=== PATIENT | female | born 1995 | race Caucasian/White ===

== ENCOUNTER 2019-12-28 10:46 | Observation (INO) | payer OTHER ==
--- NOTE | 2019-12-28 12:05 | XRAY ---
Indication: Evaluate ERICA. Limited OB ultrasound performed to evaluate ERICA. There is a single viable intrauterine with heart rate 123 BPM. Four-quadrant ERICA is 14.5 cm, previously 12.2 cm October 18, 2019.
[2019-12-28 13:10] VITALS: BP 131/79; PULSE 88; O2SAT 98
== END 2019-12-28 12:40 | disposition home or self-care (01) ==
LOC: OB 10:46
PROVIDERS: ADMIT Family Medicine; ATTEND Family Medicine
DX: Z34.83 Encounter for supervision of other normal pregnancy, third trimester (principal)
CPT/HCPCS: 59025; 76815; G0378

== ENCOUNTER 2020-01-01 12:23 | Observation (INO) | payer OTHER ==
[2020-01-01 12:51] VITALS: BP 115/80; PULSE 90
== END 2020-01-01 13:27 | disposition home or self-care (01) ==
LOC: OB 12:23
PROVIDERS: ADMIT Family Medicine; ATTEND Family Medicine
DX: O24.415 Gestational diabetes mellitus in pregnancy, controlled by oral hypoglycemic drugs (principal); Z3A.35 35 weeks gestation of pregnancy
CPT/HCPCS: 59025; G0378

== ENCOUNTER 2020-01-04 08:27 | Observation (INO) | payer OTHER ==
[2020-01-04 12:57] VITALS: BP 144/89; PULSE 75
--- NOTE | 2020-01-04 13:28 | XRAY ---
Indication: Evaluate ERICA. Limited OB ultrasound performed to evaluate ERICA. There is a single viable intrauterine with heart rate 125 BPM. Four-quadrant ERICA is 11.1 cm, previously 14.5 cm on December 28, 2019.
== END 2020-01-04 13:30 | disposition home or self-care (01) ==
LOC: EDSTATUS 08:27 → OB 12:29
PROVIDERS: ADMIT Family Medicine; ATTEND Family Medicine
DX: O24.415 Gestational diabetes mellitus in pregnancy, controlled by oral hypoglycemic drugs (principal); Z3A.35 35 weeks gestation of pregnancy
CPT/HCPCS: 59025; 76815; G0378

== ENCOUNTER 2020-01-08 13:36 | Observation (INO) | payer OTHER ==
[2020-01-08 14:00] VITALS: BP 121/78; PULSE 81
== END 2020-01-08 14:20 | disposition home or self-care (01) ==
LOC: OB 13:36
PROVIDERS: ADMIT Family Medicine; ATTEND Family Medicine
DX: O24.415 Gestational diabetes mellitus in pregnancy, controlled by oral hypoglycemic drugs (principal); Z3A.36 36 weeks gestation of pregnancy
CPT/HCPCS: 59025; G0378

== ENCOUNTER 2020-01-11 08:07 | Observation (INO) | payer OTHER ==
[2020-01-11 14:32] VITALS: PULSE 86
[2020-01-11 14:53] VITALS: BP 122/75
--- NOTE | 2020-01-11 15:14 | XRAY ---
Indication: Evaluate ERICA. Gestational diabetes. Limited OB ultrasound performed to evaluate ERICA. Four-quadrant ERICA is 12.3 cm, previously 11.1 cm on January 04, 2020.
== END 2020-01-11 14:48 | disposition home or self-care (01) ==
LOC: OB 13:52 → UNDOADMOB 13:52 → MED SURG 13:52
PROVIDERS: ADMIT Family Medicine; ATTEND Family Medicine
DX: O09.93 Supervision of high risk pregnancy, unspecified, third trimester (principal); Z3A.36 36 weeks gestation of pregnancy
CPT/HCPCS: 59025; 76815; G0378

== ENCOUNTER 2020-01-15 11:14 | Observation (INO) | payer OTHER ==
[2020-01-15 11:40] VITALS: BP 141/91; PULSE 86
== END 2020-01-15 11:55 | disposition home or self-care (01) ==
LOC: OB 11:14
PROVIDERS: ADMIT Family Medicine; ATTEND Family Medicine
DX: Z34.83 Encounter for supervision of other normal pregnancy, third trimester (principal)
CPT/HCPCS: 59025; G0378

== ENCOUNTER 2020-01-18 06:30 | Observation (INO) | payer OTHER ==
[2020-01-18 12:12] VITALS: PULSE 63; O2SAT 98
--- NOTE | 2020-01-18 12:40 | XRAY ---
Indication: Evaluate ERICA. Limited OB ultrasound demonstrates a single viable intrauterine with heart rate 123 BPM. Four-quadrant ERICA is 7.9 cm.
[2020-01-18 12:44] VITALS: BP 128/84
== END 2020-01-18 12:40 | disposition home or self-care (01) ==
LOC: EDSTATUS 11:09 → OB 11:10
PROVIDERS: ADMIT Family Medicine; ATTEND Family Medicine
DX: O09.93 Supervision of high risk pregnancy, unspecified, third trimester (principal); Z3A.37 37 weeks gestation of pregnancy
CPT/HCPCS: 59025; 76805; 81003; G0378

== ENCOUNTER 2020-01-22 07:01 | Inpatient (IN) | payer OTHER ==
--- NOTE | 2020-01-22 16:01 | XRAY ---
Indication: Evaluate ERICA. well-being. Limited OB ultrasound performed to evaluate ERICA. There is a single viable intrauterine with heart rate 141 BPM. Four-quadrant ERICA is 1.9 cm favoring oligohydramnios. This was previously 7.9 cm on January 18, 2020. Comment: Preliminary report was given.
[2020-01-22] MEDS ORDERED: Lactated Ringers 1,000 ML IV ONE ×2 (16:30→17:02)
[2020-01-22] MEDS ORDERED: XYLOCAINE 1% HCL 20 ML MDV IJ PRN (16:54)
[2020-01-22] MEDS ORDERED: PITOCIN 30 UNITS/ LR 500 ML 500 ML IV SCH (17:00)
[2020-01-22] MEDS ORDERED: Lactated Ringers 1,000 ML IV SCH (17:00)
[2020-01-22] MEDS ORDERED: Ephedrine Sulfate 50 MG/ML IV PRN (17:02)
[2020-01-22] MEDS ORDERED: OB EPIDURAL NAROPIN/SUFENTANIL IN NACL EPIDURAL PRN (17:02)
[2020-01-22 17:14] LABS: Absolute Neutrophil Ct (ANC) 8.84 (1.4-6.9); BASOPHIL % 0.3 % (0.0-0.4); Basophil (Absolute #) 0.03 (0-0.4); Eosinophil % 0.3 % (0.00-5.0); Eosinophil (Absolute #) 0.04 (0-0.5); Hematocrit 38.6 % (35-47); Hemoglobin 13.1 gm/dl (12.0-16.0); Lymphocyte (Absolute #) 2.28 (1.0-4.6); Lymphocytes % 19.1 % (24.0-44.0); Mean Cell Volume 89.4 fl (78-100); Mean Corpuscular Hemoglobin 30.3 pg (26-32); Mean Corpuscular Hgb Concent. 33.9 g/dl (32-36); Mean Platelet Volume 11.8 fl (7.5-11.0); Monocyte (Absolute #) 0.74 (0.0-1.3); Monocytes % 6.2 % (0.0-12.0); Neutrophil % 74.1 % (36.0-66.0); Platelet Count 132 K/mm3 (150-450); Red Blood Count 4.32 M/mm3 (4.1-5.4); Red Cell Distribution Width 13.2 % (11.5-14.0); White Blood Count 11.9 K/mm3 (4.0-10.5)
[2020-01-22] MEDS ORDERED: MOTRIN 400 MG PO PRN (20:27)
[2020-01-22] MEDS ORDERED: Mylicon 80MG PO PRN (20:27)
[2020-01-22] MEDS ORDERED: Dermoplast Spray TP PRN ×2 (20:27)
[2020-01-22] MEDS ORDERED: Ambien 10 MG PO PRN (20:27)
[2020-01-22] MEDS ORDERED: CORTISONE 1% CREAM TP PRN (20:27)
[2020-01-22] MEDS: FERREX 150 PO SCH (20:27)
[2020-01-22] MEDS ORDERED: TYLENOL EXTRA STRENGTH 500 MG PO PRN ×2 (20:27)
[2020-01-22] MEDS ORDERED: Dulcolax 10 MG SUPP PR PRN (20:27)
[2020-01-22] MEDS ORDERED: Restoril 15 MG PO PRN (20:27)
[2020-01-22] MEDS ORDERED: LANSINOH 40 GM TOP PRN ×2 (20:27)
[2020-01-22] MEDS ORDERED: TUCKS TP PRN ×2 (20:27)
[2020-01-22] MEDS: NORCO 5/325 MG PO PRN (20:42)
[2020-01-22] MEDS: MOTRIN 400 MG PO PRN (22:58)
[2020-01-23] MEDS: Colace 100 MG PO SCH ×6 (00:38→21:20)
[2020-01-23] MEDS: NORCO 5/325 MG PO PRN ×3 (00:43→19:35)
[2020-01-23 01:47] LABS: Barbiturate,Urine NEGATIVE (NEGATIVE); Benzodiazepine,Urine POSITIVE (NEGATIVE); Cocaine,Urine NEGATIVE (NEGATIVE); Methadone,Urine NEGATIVE (NEGATIVE); Opiate,Urine POSITIVE (NEGATIVE); PCP,Urine NEGATIVE (NEGATIVE); THC,Urine NEGATIVE (NEGATIVE)
[2020-01-23 04:35] LABS: Amphetamine,Urine NEGATIVE (NEGATIVE)
[2020-01-23 05:05] LABS: Absolute Neutrophil Ct (ANC) 9.11 (1.4-6.9); BASOPHIL % 0.2 % (0.0-0.4); Basophil (Absolute #) 0.03 (0-0.4); Eosinophil % 0.5 % (0.00-5.0); Eosinophil (Absolute #) 0.07 (0-0.5); Hematocrit 34.7 % (35-47); Hemoglobin 11.8 gm/dl (12.0-16.0); Lymphocyte (Absolute #) 2.75 (1.0-4.6); Mean Cell Volume 89.7 fl (78-100); Mean Corpuscular Hemoglobin 30.5 pg (26-32); Monocyte (Absolute #) 1.13 (0.0-1.3); Monocytes % 8.6 % (0.0-12.0); Neutrophil % 69.7 % (36.0-66.0); Platelet Count 129 K/mm3 (150-450); Red Blood Count 3.87 M/mm3 (4.1-5.4); White Blood Count 13.1 K/mm3 (4.0-10.5)
[2020-01-23] MEDS ORDERED: Adacel Vial IM ONE (08:00)
[2020-01-23] MEDS ORDERED: FERREX 150 PO SCH (10:00)
[2020-01-23] MEDS: FERREX 150 PO SCH (10:00)
[2020-01-23] MEDS: MOTRIN 400 MG PO PRN ×2 (10:32→18:24)
[2020-01-24] MEDS: Colace 100 MG PO SCH ×2 (01:05→11:10)
[2020-01-24] MEDS ORDERED: MOTRIN 400 MG ONE (01:18)
[2020-01-24 04:15] VITALS: O2SAT 98
[2020-01-24] MEDS ORDERED: NORCO 5/325 MG ONE (06:15)
[2020-01-24] MEDS: NORCO 5/325 MG PO PRN ×2 (06:19→11:10)
[2020-01-24] MEDS: FERREX 150 PO SCH (11:10)
[2020-01-24 16:42] VITALS: BP 121/67; PULSE 65
== END 2020-01-24 16:20 | disposition home or self-care (01) | DRG 807 ==
LOC: OBSVTOIN 15:02 → MED SURG 15:02 → OB 15:03
PROVIDERS: ADMIT Family Medicine; ATTEND Family Medicine
PROC: 10E0XZZ Delivery of Products of Conception, External Approach (ICD-10-PCS; principal; 2020-01-22)
DX: O24.425 Gestational diabetes mellitus in childbirth, controlled by oral hypoglycemic drugs (principal); Z37.0 Single live birth; Z3A.38 38 weeks gestation of pregnancy; F17.200 Nicotine dependence, unspecified, uncomplicated; D50.9 Iron deficiency anemia, unspecified
CPT/HCPCS: 36415; 76815; 80307; 82962; 84112; 85025; 90471; 90715; 94799; G0378; J2590; J2795; A9270-GY

== ENCOUNTER 2020-04-02 06:56 | Day surgery (SDC) | payer OTHER ==
[2020-04-02] MEDS ORDERED: Lactated Ringers 1,000 ML IV SCH (07:30)
[2020-04-02] MEDS ORDERED: KEFZOL 1 GM/50 ML PREMIX** 1 GM/50 ML IVPB IV ONE (08:33)
[2020-04-02] MEDS ORDERED: DIPRIVAN 200 MG/20 ML IV ONE (08:37)
[2020-04-02] MEDS ORDERED: Zemuron 100 MG/10 ML ONE (08:37)
[2020-04-02] MEDS ORDERED: Xylocaine-Mpf 2% 5 Ml Vial ONE (08:37)
[2020-04-02] MEDS ORDERED: TORAdol 30 mg Injection ONE (08:37)
[2020-04-02] MEDS ORDERED: Zofran 4 MG/2 ML VIAL ONE ×2 (08:37→09:43)
[2020-04-02] MEDS ORDERED: SUBLIMAZE 100 MCG/2 ML ONE ×2 (08:37→09:34)
[2020-04-02] MEDS ORDERED: Decadron 4 MG INJ ONE (08:37)
[2020-04-02] MEDS ORDERED: BRIDION 200MG/2ML IV ONE (08:37)
[2020-04-02] MEDS ORDERED: Ketamine HCl 50 MG/ML ONE (08:39)
[2020-04-02] MEDS ORDERED: Lactated Ringers 1,000 ML IV ONE (08:42)
[2020-04-02] MEDS ORDERED: Sensorcaine 0.25% 10 ML ONE (08:42)
[2020-04-02] MEDS ORDERED: KEFZOL 1 GM/50 ML PREMIX** 1 GM/50 ML IVPB IV SCH (08:45)
[2020-04-02] MEDS ORDERED: DILAUDID 2 MG INJECTION ONE (09:44)
[2020-04-02 11:33] VITALS: BP 118/66; PULSE 69; O2SAT 93
[2020-04-02 14:25] LABS: Appearance CLEAR (CLEAR); Bilirubin NEGATIVE (NEGATIVE); Blood NEGATIVE Ery/ul (0-5); Glucose NEGATIVE (NEGATIVE); Ketones NEGATIVE (NEGATIVE); Leukocyte Esterase TRACE (NEGATIVE); Nitrite NEGATIVE (NEGATIVE); Protein,Urine Dip NEGATIVE (Negative); Specific Gravity 1.013 (1.005-1.025); Urobilinogen NEGATIVE mg/dL (0-1)
--- NOTE | 2020-04-03 09:25 | OP ---
SURGERY DATE/TIME: 04/02/2020 0839 PREOPERATIVE DIAGNOSIS: Multiparity desiring tubal sterilization. POSTOPERATIVE DIAGNOSIS: Multiparity desiring tubal sterilization. PROCEDURE: Laparoscopic tubal sterilization via Falope ring application. SURGEON: Albert Painter D.O. SECURITIES COUNSELOR: Andi Castillo technology support analyst. ANESTHESIA: General. ESTIMATED BLOOD LOSS: Minimal. COMPLICATIONS: None. INDICATIONS: The risks, benefits, indications and alternatives of the procedure were reviewed with the patient prior to the procedure. The patient understood the risk of infection, bleeding, bowel injury, bladder injury, ureteral injury, uterine perforation, possible and ectopic that may be associated with this procedure and desires to have this procedure as a possible means to alleviate her current medical condition. DESCRIPTION OF PROCEDURE AND FINDINGS: At this point the patient is taken to the operating room, given general sedation, placed in a dorsal lithotomy position. She was prepped and draped in the usual sterile fashion. A 5 mm skin incision is made approximately 1 cm above the umbilicus where a 5 mm trocar and sleeve were advanced under direct visualization where pneumoperitoneum was obtained with 4 liters of CO2 gas. From this point an additional incision was made approximately 2 cm above the symphysis pubis where an 8 mm incision was made and 8 mm trocar and sleeve were advanced under direct visualization as well. From this point after pneumoperitoneum visualization in the pelvic region appeared to be within normal limits with no gross abnormalities. From this point the Falope ring applicator was then placed into the suprapubic site and the right fallopian tube was then grasped at the isthmic region approximately 2 to 3 cm from the cornual region where it was grasped and taken up through the Falope ring applicator where the Falope ring was applied without complication and had an excellent loop of tube was in the Falope ring. The same procedure was performed on the left side where the Falope ring applicator was reloaded and the Falope ring was taken approximately 2 to 3 cm from the left cornual region where it was applied on the isthmic region and approximately 3 cm of tube was then looped around the Falope ring which showed excellent placement. From this point there was no bleeding noted from the tube. There were no complications that were noted. No other abnormality was noted within the pelvic region. From this point all instruments were then removed from the patient's abdominal region and the incisions were closed with 4-0 Monocryl suture with subsequent Dermabond. The patient was then taken out of anesthesia and was then taken to the recovery room in stable condition. All instruments and laps were accounted for x2.
== END 2020-04-02 12:40 | disposition home or self-care (01) ==
LOC: SDC 06:56
PROVIDERS: ATTEND Obstetrics & Gynecology
DX: Z30.2 Encounter for sterilization (principal)
CPT/HCPCS: 81001; 84703; 87086; J0690; J1100; J1170; J1885; J2405; J2704; J3010

== ENCOUNTER 2020-08-08 11:01 | Observation (INO) | payer BC, OTHER ==
[2020-08-08 13:17] LABS: Hematocrit 45.9 % (35-47); Hemoglobin 15.6 gm/dl (12.0-16.0); Mean Cell Volume 90.4 fl (78-100); Mean Corpuscular Hemoglobin 30.7 pg (26-32); Mean Platelet Volume 11.5 fl (7.5-11.0); Platelet Count 241 K/mm3 (150-450); Red Blood Count 5.08 M/mm3 (4.1-5.4); Red Cell Distribution Width 12.6 % (11.5-14.0); White Blood Count 7.9 K/mm3 (4.0-10.5)
[2020-08-08] MEDS: Zofran 4 MG/2 ML VIAL IV PRN (13:25)
[2020-08-08] MEDS: MORPHINE SULFATE 2 MG INJ IV PRN ×2 (13:25→23:31)
[2020-08-08 13:40] LABS: ALKALINE PHOSPHATASE 84 U/L (38-126); ANION GAP 13.3 MEQ/L (5-15); BLOOD UREA NITROGEN 8 mg/dL (7-17); CHLORIDE 107 mmol/L (98-107); Calcium 9.7 mg/dL (8.4-10.2); Carbon Dioxide 23 mmol/L (22-30); Creatinine 1 0.59 mg/dL (0.52-1.04); EST GLOMERULAR FILTRATION RATE > 60.0 ML/MIN; Glucose 98 mg/dL (74-106); Potassium 3.8 mmol/L (3.5-5.1); SGOT/AST 24 U/L (14-36); SGPT/ALT 9 U/L (0-35); SODIUM 139 mmol/L (137-145); Total Protein 8.2 g/dL (6.3-8.2)
[2020-08-08 13:44] LABS: Appearance SLIGHTLY CLOUDY (CLEAR); Bilirubin NEGATIVE (NEGATIVE); Blood NEGATIVE Ery/ul (0-5); Epithelial Cells RARE /HPF (FEW); Glucose NEGATIVE (NEGATIVE); Ketones TRACE (NEGATIVE); Leukocyte Esterase MODERATE (NEGATIVE); Mucus MANY /HPF (NEGATIVE); Nitrite NEGATIVE (NEGATIVE); Protein,Urine Dip 30 (Negative); Specific Gravity 1.026 (1.005-1.025); Urobilinogen 2 mg/dL (0-1)
[2020-08-08 13:50] LABS: Risk Ratio 3.9
[2020-08-08 13:56] LABS: Direct Bilirubin 0 mg/dL (0.0-0.4)
[2020-08-08 14:01] LABS: Amphetamine,Urine NEGATIVE (NEGATIVE); Barbiturate,Urine NEGATIVE (NEGATIVE); Benzodiazepine,Urine NEGATIVE (NEGATIVE); Cocaine,Urine NEGATIVE (NEGATIVE); Methadone,Urine NEGATIVE (NEGATIVE); Opiate,Urine NEGATIVE (NEGATIVE); PCP,Urine NEGATIVE (NEGATIVE); THC,Urine NEGATIVE (NEGATIVE)
--- NOTE | 2020-08-08 14:57 | XRAY ---
Indication: Bilateral flank pain and hematuria. Nausea and vomiting for weeks. Multiple contiguous images obtained through the abdomen and pelvis prior to and following 80 cc Isovue 370 contrast as ordered. Comparison: None Lung bases are clear. Heart is not enlarged. Noncontrasted images are negative for pathologic visceral calcifications or calculi. Noncontrasted stomach and bowel loops appear nonobstructed. Normal appendix. No free fluid/air. Postcontrast images demonstrates normal visceral enhancement and renal excretion. 1.1 cm left mid renal and 6 mm right mid renal cortical cyst. Uterus is retroverted. Remaining liver, gallbladder, pancreas, spleen, adrenal glands, kidneys, ureters, bladder, uterus, and aorta appear unremarkable. No pathologic retroperitoneal lymphadenopathy. Osseous structures intact. No ventral or inguinal hernias. Impression: 1. Negative for pathologic visceral calcifications/calculi. 2. Bilateral renal cysts. 3. Remaining CT abdomen/pelvis with and without contrast exam is negative.
[2020-08-08] MEDS ORDERED: MORPHINE SULFATE 2 MG INJ IV ONE (15:00)
[2020-08-08] MEDS: Sodium Chloride 0.9% 1000 ML 1,000 ML IV SCH (15:11)
[2020-08-08] MEDS: ROCEPHIN 1 Gm-D5w 50 ml Bag** 1 G/50 ML IVPB IV SCH (15:13)
[2020-08-08] MEDS ORDERED: CLONAZEPAM 1 MG PO PRN (17:23)
[2020-08-08] MEDS ORDERED: Flovent 110 Mcg MDI IH PRN (17:23)
[2020-08-08] MEDS ORDERED: Klonopin 0.5 MG PO PRN (17:27)
[2020-08-08] MEDS ORDERED: MEDICATION INTERVENTION MC PRN (17:29)
[2020-08-08] MEDS ORDERED: MEDICATION INTERVENTION MC SCH ×2 (17:45)
[2020-08-08] MEDS ORDERED: LURASIDONE HCL 20 MG PO SCH (22:00)
[2020-08-08] MEDS ORDERED: NON-FORMULARY ITEM (Duloxetine Hcl [Cymbalta] 20 MG) PO SCH (22:00)
[2020-08-09] MEDS: Sodium Chloride 0.9% 1000 ML 1,000 ML IV SCH ×2 (02:08→12:00)
[2020-08-09] MEDS: Zofran 4 MG/2 ML VIAL IV PRN ×2 (03:44→12:00)
[2020-08-09] MEDS: MORPHINE SULFATE 2 MG INJ IV PRN ×5 (03:48→21:38)
--- NOTE | 2020-08-09 08:16 | PCM.HP.ADD ---
Addendum to History & Physical - History & Physical Addendum Addendum to History & Physical: This certifies that the History & Physical in the electronic chart reflects the current health status of the patient. If there are changes in the H&P these changes/exceptions are listed as follows. (H&P done by Dr. Pearce)
--- NOTE | 2020-08-09 09:01 | PCM.NOTE ---
Date and Time: 08/09/20854 Subjective Assessment: Pt still having epigastric and suprapubic abd pain, radiating to the back. Better with pain meds. Had vomiting last night but is on antiemetics and that's better currently. Pt has had abd pain x 2 weeks. not eating well x 3d. Having some diarrhea. Had ER visits at [facility] x 2; first visit she was dx with "kidney infection" per pt. Pt had intussusception 2 yrs ago, tx at [facility] with Dr. Sousa. Pt has had constipation and diarrhea. Before the abd pain started, she did have some cough. No known COVID+ contacts. - Review of Systems Abdominal/Gastrointestinal: Abdominal Pain, Nausea, Vomiting, Diarrhea, Appetite Changes Genitourinary Symptoms: Hematuria (gross; prior to 1st ER visit) Objective Exam General Appearance: no apparent distress, alert, thin Neurologic Exam: oriented x 3, cooperative Skin Exam: normal color, warm, dry, No rash Eye Exam: eyes nml inspection Ears, Nose, Throat Exam: moist mucous membranes Neck Exam: normal inspection, non-tender, No lymphadenopathy Respiratory Exam: normal breath sounds, lungs clear, No crackles/rales, No rhonchi, No wheezing Cardiovascular Exam: regular rate/rhythm, normal heart sounds, No murmur Gastrointestinal/Abdomen Exam: soft, normal bowel sounds, tenderness (epigastrum and suprapubic), No distention, No mass, No guarding, No rebound Extremity Exam: No pedal edema, No swelling Back Exam: normal inspection, No CVA tenderness, No rash OBJECTIVE DATA Vital Signs: Vital Signs - 24 hr Temp Pulse Resp BP BP Pulse Ox 08/09/20 07:03 98.9 F 53 L 16 96/48 97 08/09/20 04:02 97.5 F 51 L 16 112/64 97 08/08/20 23:37 98.1 F 59 L 17 104/56 98 08/08/20 19:35 98.6 F 68 16 98/57 97 08/08/20 16:00 98.7 F 59 L 16 102/60 97 08/08/20 15:32 98.6 F 75 18 116/72 98 08/08/20 12:55 98.6 F 75 18 116/72 98 08/08/20 12:38 98.6 F 75 18 116/72 98 Pain Assessment - Last Documented Pain Intensity 7 Pain Scale Used 0-10 Pain Scale Intake and Output: Intake & Output 08/06/20 08/07/20 08/08/20 08/09/20 11:59 11:59 11:59 11:59 Intake Total 2974 Output Total 500 Balance 2474 Weight 41 kg Lab Results: Lab Results-Last 24 Hours 08/08/20 08/08/20 08/08/20 Range/Units 12:50 12:50 12:50 WBC 7.9 (4.0-10.5) K/mm3 RBC 5.08 (4.1-5.4) M/mm3 Hgb 15.6 (12.0-16.0) gm/dl Hct 45.9 (35-47) % MCV 90.4 (78-100) fl MCH 30.7 (26-32) pg MCHC 34.0 (32-36) g/dl RDW 12.6 (11.5-14.0) % Plt Count 241 (150-450) K/mm3 MPV 11.5 H (7.5-11.0) fl Sodium 139 (137-145) mmol/L Potassium 3.8 (3.5-5.1) mmol/L Chloride 107 (98-107) mmol/L Carbon Dioxide 23 (22-30) mmol/L Anion Gap 13.3 (5-15) MEQ/L BUN 8 (7-17) mg/dL Creatinine 0.59 (0.52-1.04) mg/dL Estimated GFR > 60.0 ML/MIN Glucose 98 (74-106) mg/dL Calcium 9.7 (8.4-10.2) mg/dL Total Bilirubin 1.10 (0.2-1.3) mg/dL Direct Bilirubin 0 (0.0-0.4) mg/dL AST 24 (14-36) U/L ALT 9 (0-35) U/L Alkaline Phosphatase 84 (38-126) U/L Serum Total Protein 8.2 (6.3-8.2) g/dL Albumin 5.0 (3.5-5.0) g/dL Triglycerides 98 (30-150) mg/dL Cholesterol 184 (50-200) mg/dL LDL Cholesterol 111 H (30-100) mg/dL HDL Cholesterol 47 (40-60) mg/dL Heart Disease Risk Ratio 3.9 Amylase 62 (30-110) U/L Lipase 92 (23-300) U/L Urine Color (YELLOW) Urine Appearance (CLEAR) Urine pH (5-6) Ur Specific [place] (1.005-1.025) Urine Protein (Negative) Urine Ketones (NEGATIVE) Urine Blood (0-5) Kenn/ul Urine Nitrite (NEGATIVE) Urine Bilirubin (NEGATIVE) Urine Urobilinogen (0-1) mg/dL Ur Leukocyte Esterase (NEGATIVE) Urine WBC (Auto) (0-5) /HPF Urine RBC (Auto) (0-2) /HPF U Epithel Cells (Auto) (FEW) /HPF Urine Bacteria (Auto) (NEGATIVE) /HPF Urine Mucus (Auto) (NEGATIVE) /HPF Urine Culture Reflexed (NO) Urine Glucose (NEGATIVE) mg/dL Urine Opiates Level (NEGATIVE) Ur Methadone (NEGATIVE) Urine Barbiturates (NEGATIVE) Ur Phencyclidine (PCP) (NEGATIVE) Urine Amphetamine (NEGATIVE) U Benzodiazepine Level (NEGATIVE) Urine Cocaine (NEGATIVE) Urine Marijuana (THC) (NEGATIVE) 08/08/20 08/08/20 Range/Units 13:43 13:43 WBC (4.0-10.5) K/mm3 RBC (4.1-5.4) M/mm3 Hgb (12.0-16.0) gm/dl Hct (35-47) % MCV (78-100) fl MCH (26-32) pg MCHC (32-36) g/dl RDW (11.5-14.0) % Plt Count (150-450) K/mm3 MPV (7.5-11.0) fl Sodium (137-145) mmol/L Potassium (3.5-5.1) mmol/L Chloride (98-107) mmol/L Carbon Dioxide (22-30) mmol/L Anion Gap (5-15) MEQ/L BUN (7-17) mg/dL Creatinine (0.52-1.04) mg/dL Estimated GFR ML/MIN Glucose (74-106) mg/dL Calcium (8.4-10.2) mg/dL Total Bilirubin (0.2-1.3) mg/dL Direct Bilirubin (0.0-0.4) mg/dL AST (14-36) U/L ALT (0-35) U/L Alkaline Phosphatase (38-126) U/L Serum Total Protein (6.3-8.2) g/dL Albumin (3.5-5.0) g/dL Triglycerides (30-150) mg/dL Cholesterol (50-200) mg/dL LDL Cholesterol (30-100) mg/dL HDL Cholesterol (40-60) mg/dL Heart Disease Risk Ratio Amylase (30-110) U/L Lipase (23-300) U/L Urine Color YELLOW (YELLOW) Urine Appearance SLIGHTLY CLOUDY (CLEAR) Urine pH 6.0 (5-6) Ur Specific [place] 1.026 (1.005-1.025) Urine Protein 30 (Negative) Urine Ketones TRACE (NEGATIVE) Urine Blood NEGATIVE (0-5) Kenn/ul Urine Nitrite NEGATIVE (NEGATIVE) Urine Bilirubin NEGATIVE (NEGATIVE) Urine Urobilinogen 2 (0-1) mg/dL Ur Leukocyte Esterase MODERATE (NEGATIVE) Urine WBC (Auto) 3-5 (0-5) /HPF Urine RBC (Auto) 6-10 (0-2) /HPF U Epithel Cells (Auto) RARE (FEW) /HPF Urine Bacteria (Auto) NONE (NEGATIVE) /HPF Urine Mucus (Auto) MANY (NEGATIVE) /HPF Urine Culture Reflexed NO (NO) Urine Glucose NEGATIVE (NEGATIVE) mg/dL Urine Opiates Level NEGATIVE (NEGATIVE) Ur Methadone NEGATIVE (NEGATIVE) Urine Barbiturates NEGATIVE (NEGATIVE) Ur Phencyclidine (PCP) NEGATIVE (NEGATIVE) Urine Amphetamine NEGATIVE (NEGATIVE) U Benzodiazepine Level NEGATIVE (NEGATIVE) Urine Cocaine NEGATIVE (NEGATIVE) Urine Marijuana (THC) NEGATIVE (NEGATIVE) Radiology Exams: Radiology Procedures Category Date Time Status ABDOMEN AND PELVIS W&WO CONTRA [CT] Routine Exams 08/08/20 13:00 Completed Assessment/Plan (1) Abdominal pain Current Visit: Yes Status: Acute Qualifiers: Abdominal location: epigastric Qualified Code(s): R10.13 - Epigastric pain Assessment & Plan: check u/s gb. Urine NG/CT pending. Consulting surgery, thank you, due to pt's hx intussusception. Code(s): R10.9 - UNSPECIFIED ABDOMINAL PAIN (2) Nausea & vomiting Current Visit: Yes Status: Acute Qualifiers: Vomiting type: unspecified Code(s): R11.2 - NAUSEA WITH VOMITING, UNSPECIFIED (3) Diarrhea Current Visit: Yes Status: Acute Qualifiers: Diarrhea type: unspecified type Qualified Code(s): R19.7 - Diarrhea, unspecified Assessment & Plan: Will r/o COVID 19. Acute on chronic, which alternates with constipation. If not acutely done, she will need f/u with op colonoscopy. Code(s): R19.7 - DIARRHEA, UNSPECIFIED
[2020-08-09] MEDS: ROCEPHIN 1 Gm-D5w 50 ml Bag** 1 G/50 ML IVPB IV SCH (09:32)
--- NOTE | 2020-08-09 10:12 | XRAY ---
Indication: Abdomen pain. Two-dimensional gallbladder sonogram performed. Comparison: None Gallbladder is contracted without gallstones, wall thickening, or pericholecystic fluid. Common bile duct measures 5 mm. No intrahepatic biliary distention. Remaining visualized liver, pancreas, and right kidney appear sonographically normal. Right kidney measures 9.5 cm in length. No ascites. Impression: Negative gallbladder sonogram.
[2020-08-09 11:52] LABS: CHLAMYDIA DNA NOT DETECTED (NEGATIVE); GC DNA Probe NOT DETECTED (NEGATIVE)
[2020-08-10] MEDS: Sodium Chloride 0.9% 1000 ML 1,000 ML IV SCH (00:14)
[2020-08-10] MEDS: MORPHINE SULFATE 2 MG INJ IV PRN ×2 (02:23→08:05)
[2020-08-10] MEDS: Zofran 4 MG/2 ML VIAL IV PRN (02:28)
[2020-08-10 07:11] VITALS: BP 115/64; PULSE 58; O2SAT 97
[2020-08-10] MEDS: ROCEPHIN 1 Gm-D5w 50 ml Bag** 1 G/50 ML IVPB IV SCH (10:04)
--- NOTE | 2020-08-12 11:37 | CONS ---
CONSULT DATE: 08/10/2020 REASON FOR CONSULT: Gallbladder disease. HISTORY: The patient has upper abdominal nausea but she had some back and flank pain and she has a urinary tract infection. She is being treated for urinary tract infection. She has had multiple urinary tract infections. She understands urinary tract infection symptoms and this did seem to be different. She had upper flank pain. We could not explain her nausea however. She had an ultrasound that was negative. She has a HIDA scan pending from Wednesday. If the HIDA scan is negative, she probably needs an EGD. I am not sure if she is staying as an inpatient or an outpatient.
--- NOTE | 2020-08-13 14:48 | SSS ---
DISCHARGE DIAGNOSES: 1) ABDOMINAL PAIN. 2) VOMITING. 3) RECENT HEMATURIA. HISTORY: The patient is a 25 year old white female who presented to the emergency room on 08/08/2020 with complaints of abdominal pain and vomiting. The patient reports she has been having problems for the past couple of weeks initially beginning with a bloody urine. She was given Keflex for this but her abdominal pain seemed to get worse over time. She thinks the vomiting is due to the severity of the pain. The patient has been admitted to the hospital for further evaluation and management. PAST MEDICAL/SURGICAL HISTORY: Significant for childbirth otherwise she has not been ill. HOME MEDICATIONS: Takes no medications regularly. ALLERGIES: NKDA. PHYSICAL EXAMINATION: Revealed a thin, 25 year old white female currently in no distress. Her most recent vital signs showed temperature 98.2F, pulse 62, respiratory rate 17 and blood pressure 105/65. O2 saturation 99%. LAB DATA AND TESTS: Initial laboratory studies in the emergency room showed a lipid panel showing LDL of 111, total cholesterol 184, amylase 62, lipase 92. She had metabolic panel otherwise that showed BUN 8, creatinine 0.59. Electrolytes were normal. Liver enzymes were normal. Bilirubin was normal. UA was slightly cloudy, specific gravity 1.026 with 2 to 5 white blood cells, 6-10 red blood cells, negative for nitrite and sugar. Protein was noted at 30. Her CBC was normal with a white count of 7,900, hemoglobin 15.6, PLT count 241,000. The patient's urine drug screen was negative. Her x-ray showed negative gallbladder ultrasound. She had CT scan abdomen and pelvis negative for calcifications. There were bilateral renal cysts. The remainder CT abdomen and pelvis was essentially negative. HOSPITAL COURSE: The patient is admitted to the medicine paz, given IV pain medication. The patient reports that her appetite has improved but she is still fearful of recurrent pain. She had gallbladder ultrasound done and HIDA scan that is currently pending for 08/12/2020. The patient at this time is felt to be ready for discharge home. She was given Adair 10/325 every four hours PRN for pain given a total of 15. She was instructed to follow up with Dr. Brambila in the office after her HIDA scan.
== END 2020-08-10 11:10 | disposition home or self-care (01) ==
LOC: MED SURG 12:31
PROVIDERS: ADMIT Family Medicine; ATTEND Family Medicine
DX: E86.0 Dehydration (principal); R10.9 Unspecified abdominal pain; Z79.899 Other long term (current) drug therapy; R11.2 Nausea with vomiting, unspecified; R31.9 Hematuria, unspecified; R19.7 Diarrhea, unspecified; N39.0 Urinary tract infection, site not specified
CPT/HCPCS: 36415; 74178; 76705; 80053; 80061; 80307; 81001; 82150; 82248; 83690; 83721; 85027; 87491; 87591; G0378; U0003; J0696; J2270; J2405